=== PATIENT | female | born 1985 | race Caucasian/White ===

== ENCOUNTER 2020-01-11 13:39 | Emergency (ER) | payer SELFPAY ==
[2020-01-11] MEDS ORDERED: Famotidine 20 MG TAB ONE ×2 (14:08→14:10)
[2020-01-11] MEDS ORDERED: hydrOXYzine 25 MG TAB ONE ×2 (14:08→14:10)
[2020-01-11] MEDS ORDERED: methylPREDNISolone Sod Succ/PF 125 MG/2 ML VIAL ONE ×2 (14:08→14:10)
== END 2020-01-11 15:07 | disposition home or self-care (01) ==
LOC: BURERS 13:39
DX: T63.441A Toxic effect of venom of bees, accidental (unintentional), initial encounter (principal); L50.0 Allergic urticaria; F17.210 Nicotine dependence, cigarettes, uncomplicated
CPT/HCPCS: 96372; 99282; J2930

== ENCOUNTER 2021-09-24 04:11 | Emergency (ER) | payer SELFPAY ==
[2021-09-24] MEDS ORDERED: NEOMYCIN-POLYMYXIN-HC EAR SUSP 200 DROP/10 ML BOT ONE (04:29)
== END 2021-09-24 04:35 | disposition home or self-care (01) ==
LOC: BURERS 04:11
DX: T16.1XXA Foreign body in right ear, initial encounter (principal); F17.210 Nicotine dependence, cigarettes, uncomplicated
CPT/HCPCS: 99282